=== PATIENT | male | born 1955 | race Caucasian/White ===

== ENCOUNTER 2017-12-14 08:19 | Emergency (ER) | payer OTHER ==
[2017-12-14 08:58] LABS: BILIRUBIN,URINE NEGATIVE (NEG); CLARITY,URINE CLEAR; COLOR,URINE YELLOW; GLUCOSE,URINE NEGATIVE (NEG); NITRITE,URINE NEGATIVE (NEG); PROTEIN,URINE NEGATIVE (NEG-TRACE)
[2017-12-14 09:08] LABS: BACTERIA,URINE FEW /HPF (0-FEW); RBC,URINE 0 /HPF (0-2); SQUAMOUS EPITHELIAL CELL,UR FEW /LPF; WBC,URINE OCC /HPF (0-4)
== END 2017-12-14 10:22 | disposition home or self-care (01) ==
LOC: ER 08:19
DX: I86.1 Scrotal varices (principal)
CPT/HCPCS: 76870; 81001; 87491; 87591; 99285-25